=== PATIENT | female | born 1980 | race Caucasian/White ===

== ENCOUNTER 2024-08-02 14:56 | Emergency (ER) | payer SELFPAY ==
[~2024-08-02] VITALS: Ht 167.6 cm; Wt 66.7 kg
[2024-08-02] MEDS ORDERED: methylPREDNISolone sod succ 125 MG VIAL IM ONE (15:25)
[2024-08-02] MEDS ORDERED: MEDROL DOSEPAK4 MG PO (16:07)
== END 2024-08-02 16:16 | disposition home or self-care (01) ==
LOC: ED 14:56
DX: J40 Bronchitis, not specified as acute or chronic (principal); Z20.822 Contact with and (suspected) exposure to COVID-19